=== PATIENT | male | born 1980 | race Two or more races ===

== ENCOUNTER 2020-11-24 10:33 | Emergency (ER) | payer OTHER ==
[~2020-11-24] VITALS: Ht 190.5 cm; Wt 145.1 kg
== END 2020-11-24 17:57 ==
LOC: ER 10:33
DX: G47.39 Other sleep apnea (principal); R07.1 Chest pain on breathing

== ENCOUNTER 2020-11-29 20:20 | Emergency (ER) | payer OTHER ==
[~2020-11-29] VITALS: Ht 190.5 cm; Wt 145.1 kg
[2020-11-29] MEDS ORDERED: KETO10TA2 PO (22:25)
[2020-11-29] MEDS ORDERED: MUCINEX DM ER1 EAC1 PO (22:25)
[2020-11-29] MEDS ORDERED: NORFLEX100MG PO (22:25)
== END 2020-11-29 22:41 | disposition home or self-care (01) ==
LOC: ER 20:20
DX: M62.838 Other muscle spasm (principal)

== ENCOUNTER 2021-09-24 19:23 | Emergency (ER) | payer OTHER ==
[~2021-09-24] VITALS: Ht 190.5 cm; Wt 149.7 kg
[~2021-09-24 19:23] MED LIST: KETO10TA2 PO; MUCINEX DM ER1 EAC1 PO; NORFLEX100MG PO
== END 2021-09-25 00:56 | disposition home or self-care (01) ==
LOC: ER 19:23
DX: G44.009 Cluster headache syndrome, unspecified, not intractable (principal); Z88.6 Allergy status to analgesic agent

== ENCOUNTER 2022-02-04 08:06 | Emergency (ER) | payer OTHER ==
[~2022-02-04] VITALS: Ht 190.5 cm; Wt 139.3 kg
[2022-02-04] MEDS ORDERED: PREDNISOLONE ACE5 M1 OP (09:01)
== END 2022-02-04 09:06 | disposition home or self-care (01) ==
LOC: ER 08:06
DX: H15.102 Unspecified episcleritis, left eye (principal); Z88.6 Allergy status to analgesic agent

== ENCOUNTER 2024-04-01 21:02 | Inpatient (IN) | payer OTHER ==
[~2024-04-01] VITALS: Ht 190.5 cm; Wt 145.1 kg
[~2024-04-01 21:02] MED LIST changes: +PREDNISOLONE ACE5 M1 OP
[2024-04-01] MEDS ORDERED: FAMOtidine 10 MG/ML (4ML VIAL) IV ONE (21:45)
[2024-04-01] MEDS ORDERED: MEPERIDINE HCL/PF 50 MG/ML VIAL IV ONE (21:45)
[2024-04-01 22:12] LABS: HEMATOCRIT 46.5 % (39.0-48.0); MEAN CELL VOLUME 89.2 fL (80.0-100.00); MEAN CORPUSCULAR HEMOGLOBIN 28.8 pg (27.00-32.0); MEAN CORPUSCULAR HGB CONC 32.3 g/dl (32.0-36.0); PLATELET COUNT 252 K/uL (150-450); RED BLOOD COUNT 5.21 M/uL (4.00-6.00)
[2024-04-01 22:31] LABS: ALBUMIN 3.9 gm/dL (3.4-5.0); BILIRUBIN TOTAL 0.62 mg/dL (0.3-1.2); CALCIUM 9.3 mg/dL (8.5-10.1); CREATININE SERUM 0.89 mg/dL (0.70-1.30); GFR 92.44; GLOBULINA 4.4 G/DL (2.4-3.5); POTASSIUM 4.1 mEq/L (3.5-5.1); TOTAL PROTEIN 8.3 gm/dL (6.4-8.2)
[2024-04-02] MEDS ORDERED: OxyCODONE HCL/APAP UD (PERCOCET) PO STA (03:58)
[2024-04-02] MEDS ORDERED: RINGERS SOLUTION,LACTATED 1,000 ML IV STA (03:59)
[2024-04-02] MEDS ORDERED: HYOSCYAMINE SULFATE 0.125 MG TAB.SUBL SL ONE (04:00)
[2024-04-02 04:49] LABS: AMYLASE 36 U/L (25-115); LIPASE 31 U/L (13-75)
[2024-04-02 04:50] LABS: INR 1.09; PARTIAL THROMBOPLASTIN TIME 31.4 SECONDS (22.0-34.0); PROTHROMBIN TIME 11.8 SECONDS (9.0-11.5)
[2024-04-02] MEDS ORDERED: MEPERIDINE HCL/PF 50 MG/ML VIAL IM ONE (11:45)
[2024-04-02] MEDS ORDERED: FAMOTIDINE/PF 20 MG in 0.9 % SODIUM CHLORIDE 100 ML IV SCH (17:02)
[2024-04-02] MEDS ORDERED: GABAPENTIN 300 MG CAPSULE PO SCH (17:10)
[2024-04-02] MEDS ORDERED: 0.9 % SODIUM CHLORIDE 1,000 ML IV SCH (17:15)
[2024-04-02] MEDS ORDERED: MEPERIDINE HCL/PF 50 MG/ML VIAL IV PRN (17:15)
[2024-04-02] MEDS ORDERED: ACETAMINOPHEN 500 MG GEL..CAP PO SCH (18:00)
[2024-04-02] MEDS ORDERED: PIPERACILLIN/TAZOBACTAM SODIUM 3.375 GM in 0.9 % SODIUM CHLORIDE 100 ML IV SCH (18:00)
[2024-04-02 18:05] LABS: FIBRINOGEN 396 mg/dL (187.0-446.0)
[2024-04-02 18:14] LABS: BILIRUBIN TOTAL 1.07 mg/dL (0.3-1.2); CHOL HDL RATIO 5.5 (0-5.0)
[2024-04-02 18:28] LABS: COL EPI 95 SECONDS (82-175)
[2024-04-02 19:22] LABS: PH,URINE 6.5 (5.0-8.0); URINE APPEARANCE Clear; URINE BILIRRUBIN Negative (NEGATIVE); URINE BLOOD Small; URINE COLOR Yellow; URINE GLUCOSE Negative (NEGATIVE); URINE KETONE 15 (NEGATIVE); URINE LEUKOCYTE Negative; URINE NITRATE Negative; URINE PROTEIN 30 (NEGATIVE)
[2024-04-02 19:38] LABS: URINE BACTERIA 1.2 uL (0.0-1933); URINE CAST 0.15 uL (0.0-1.40); URINE EPITHELIAL CELLS 0.9 uL (0.0-38.8); URINE WBC 0.9 uL (0.0-23.2)
[2024-04-03 00:33] VITALS: BP 143/97; O2SAT 98
[2024-04-03] MEDS ORDERED: CEFAZOLIN SODIUM 1,000 MG VIAL IV ONE (09:30)
[2024-04-03] MEDS ORDERED: MEPERIDINE HCL 50 MG/ML AMPUL IV ONE (10:40)
[2024-04-03] MEDS ORDERED: MORPHINE SULFATE 4 MG/ML VIAL IV ONE (11:24)
[2024-04-03] MEDS ORDERED: SUGAMMADEX SODIUM 200 MG/2 ML VIAL IV ONE (12:00)
[2024-04-03] MEDS ORDERED: MORPHINE SULFATE 4 MG/ML CARTRIDGE IV ONE (13:30)
[2024-04-03 16:48] VITALS: BP 127/79; O2SAT 95
[2024-04-03] MEDS ORDERED: PHENOL 177 ML BOTTLE MM SCH (17:51)
[2024-04-04 00:18] VITALS: BP 135/78; O2SAT 90
[2024-04-04 08:45] VITALS: BP 133/94; O2SAT 95
[2024-04-04] MEDS ORDERED: ONDANSETRON HCL 2 MG/ML VIAL IV PRN (08:45)
[2024-04-04] MEDS ORDERED: MORPHINE SULFATE 4 MG/ML CARTRIDGE IV PRN (08:45)
[2024-04-04] MEDS ORDERED: ENOXAPARIN SODIUM 40 MG/0.4 ML SYRINGE SUBCUTANEO SCH (09:00)
== END 2024-04-04 13:40 | disposition home or self-care (01) | DRG 418 ==
LOC: ER 21:04 → SEC-K 04-02 17:55 → SURG 04-02 17:55
PROVIDERS: General Practice; Student in an Organized Health Care Education/Training Program; ADMIT Internal Medicine; ATTEND Internal Medicine
PROC: BW40ZZZ Ultrasonography of Abdomen (ICD-10-PCS; 2024-04-01)
PROC: BW21ZZZ Computerized Tomography (CT Scan) of Abdomen and Pelvis (ICD-10-PCS; 2024-04-01)
PROC: BF52200 Other Imaging of Gallbladder using Fluorescing Agent, Indocyanine Green Dye, Intraoperative (ICD-10-PCS; 2024-04-03)
PROC: 0FT44ZZ Resection of Gallbladder, Percutaneous Endoscopic Approach (ICD-10-PCS; principal; 2024-04-03 07:00)
DX: K80.10 Calculus of gallbladder with chronic cholecystitis without obstruction (principal); K90.49 Malabsorption due to intolerance, not elsewhere classified; R59.0 Localized enlarged lymph nodes; G47.33 Obstructive sleep apnea (adult) (pediatric)